=== PATIENT | male | born 1940 | race Caucasian/White ===

== ENCOUNTER → 2016-10-11 | Outpatient (CLI) | payer OTHER ==
[~2016-10-11] MED LIST: ALFUZOSIN HCL E10 MG PO; ASPIR 8181 MG PO; EFFEXOR XR150 MG PO; LISINOPRIL40 MG PO; LOPRESSOR 50 MG50 MG PO; MAG-OX 400 TAB400 MG PO; METFORMIN HCL1000 MG PO; METOPROLOL TAR100 MG PO; MULTIVITAMINS1 EAC1 PO; NORVASC 5 MG TAB5 MG PO; OMNICEF 300 MG300 MG PO; PLAVIX 75 MG TA75 MG PO; RANITIDINE HCL150 MG PO
== END ==
LOC: HEART 5 08-28 09:00
DX: R07.9 Chest pain, unspecified (principal)
CPT/HCPCS: 93306

== ENCOUNTER 2016-11-04 18:50 | Emergency (ER) | payer OTHER ==
[2016-11-04 20:04] LABS: HEMOGLOBIN 14.2 gm/dl (14.0-17.5); RED BLOOD COUNT 4.8 M/UL (4.20-5.50); WHITE BLOOD COUNT 9.3 K/UL (4.5-11.0)
[2016-11-04 20:26] LABS: BUN/CREATININE RATIO 25 (0-10)
== END 2016-11-04 22:15 | disposition home or self-care (01) ==
LOC: ER1 18:50
PROVIDERS: Family Medicine
DX: R05 Cough (principal); E11.9 Type 2 diabetes mellitus without complications; I10 Essential (primary) hypertension; Z79.84 Long term (current) use of oral hypoglycemic drugs; Z79.82 Long term (current) use of aspirin; Z79.899 Other long term (current) drug therapy
CPT/HCPCS: 36415; 71020; 80053; 82550; 82553; 83874; 83880; 84484; 85025; 85379; 87081; 87880; 93005; 94640; 94664; 96365; 96375; 99284; J0696; J2930; J7050

== ENCOUNTER → 2020-07-05 | Outpatient (CLI) | payer OTHER ==
[~2020-07-05] MED LIST changes: +ACIDOPHILUS1 EAC2 PO; +ALAVERT10 MG PO; +ALLER-TEC10 MG PO; +ARTIFICIAL TEAR15 M5 OP; +AUGMENTIN 875-1 EACH PO; +CEPHALEXIN500 MG PO; +CLEOCIN HCL75 MG PO; +COMBIVENT RESPIM4 GM INH; +DEPAKOTE125 MG PO; +DIFLUCAN 100 M100 MG PO; +FLOMAX0.4 MG PO; +FLONASE 0.05% N16 GM; +FLORANEX GRANU1 EACH PO; +FLOVENT DISKUS50 MCG INH; +GAVILAX17 GM PO; +GLIPIZIDE XL10 MG PO; +GLUCOTROL5 MG PO; +INVANZ 1 GM VIAL1 GM IV; +IPRAT-ALBUT 0.5-3 ML NEB; +LACTINEX TABLET1 EA PO; +LEVAQUIN750 MG PO; +LIPITOR TAB 2020 MG PO; +MAGNESIUM OXID420 MG PO; +MELATONIN3 MG PO; +NAMENDA10 MG PO; +NORCO 5-325 TA1 EACH PO; +PAIN RELIEF TOP; +PHARBETOL325 MG PO; +PROAIR DIGIHAL90 MCG INH; +PROBIOTIC & AC1 EACH PO; +PROTONIX 40 MG40 M1 PO; +PROVENTIL HFA 61 INH INH; +REFRESH TEARS15 ML OU; +THERA-M CAPLET1 EACH PO; +TRAZODONE HCL100 MG PO; +TRAZODONE HCL150 MG PO; +VENTOLIN HFA 66.7 GM INH; +VIBRAMYCIN100 MG PO; +VITAMIN B-121000 MC3 PO; +VITAMIN C 500500 MG PO; +VITAMIN D 40400 UNIT PO; +VITAMIN D325 MC6 PO; +ZANTAC 150 MG150 MG PO; +[UNRECOGNIZED DRUG - OTHER] TOP
== END ==
LOC: WCC 14:57
PROC: 0JBR0ZZ Excision of Left Foot Subcutaneous Tissue and Fascia, Open Approach (ICD-10-PCS; principal; 2020-07-05)
DX: E08.621 Diabetes mellitus due to underlying condition with foot ulcer (principal); L97.525 Non-pressure chronic ulcer of other part of left foot with muscle involvement without evidence of necrosis; E08.40 Diabetes mellitus due to underlying condition with diabetic neuropathy, unspecified; I73.9 Peripheral vascular disease, unspecified

== ENCOUNTER → 2020-07-12 | Outpatient (CLI) | payer OTHER | LOC: WCC 15:00 | PROC: 0JBR0ZZ Excision of Left Foot Subcutaneous Tissue and Fascia, Open Approach (ICD-10-PCS; principal; 2020-07-12) | DX: L97.523 Non-pressure chronic ulcer of other part of left foot with necrosis of muscle (principal); L97.525 Non-pressure chronic ulcer of other part of left foot with muscle involvement without evidence of necrosis; L97.522 Non-pressure chronic ulcer of other part of left foot with fat layer exposed; L97.528 Non-pressure chronic ulcer of other part of left foot with other specified severity; I73.9 Peripheral vascular disease, unspecified; E08.40 Diabetes mellitus due to underlying condition with diabetic neuropathy, unspecified | CPT/HCPCS: 87070; 87077; 87186; 87205 ==

== ENCOUNTER 2020-09-17 17:13 | Emergency (ER) | payer OTHER, MEDICAID ==
[~2020-09-17 17:13] MED LIST changes: -CEPHALEXIN500 MG PO; -COMBIVENT RESPIM4 GM INH; -DEPAKOTE125 MG PO; -DIFLUCAN 100 M100 MG PO; -FLORANEX GRANU1 EACH PO; -IPRAT-ALBUT 0.5-3 ML NEB; -VIBRAMYCIN100 MG PO; -VITAMIN D325 MC6 PO
[2020-09-17 22:06] LABS: HEMOGLOBIN 14.2 gm/dl (14.0-17.5); RED BLOOD COUNT 4.82 M/UL (4.20-5.50); WHITE BLOOD COUNT 7.9 K/UL (4.5-11.0)
[2020-09-17 22:15] LABS: BUN/CREATININE RATIO 18 (0-10)
[2020-09-17] MEDS ORDERED: CEPHALEXIN500 MG PO (23:52)
[2020-09-17] MEDS ORDERED: VIBRAMYCIN100 MG PO (23:52)
== END 2020-09-18 00:26 | disposition home or self-care (01) ==
LOC: ER1 17:13
PROVIDERS: Emergency Medicine
DX: E11.621 Type 2 diabetes mellitus with foot ulcer (principal); I10 Essential (primary) hypertension
CPT/HCPCS: 36415; 73630; 80053; 82550; 82553; 84484; 85025; 85652; 86140; 87040; 99283

== ENCOUNTER → 2020-09-29 | Outpatient (CLI) | payer OTHER, MEDICAID ==
[~2020-09-29] MED LIST changes: +CEPHALEXIN500 MG PO; +COMBIVENT RESPIM4 GM INH; +DEPAKOTE125 MG PO; +DIFLUCAN 100 M100 MG PO; +FLORANEX GRANU1 EACH PO; +IPRAT-ALBUT 0.5-3 ML NEB; +VIBRAMYCIN100 MG PO; +VITAMIN D325 MC6 PO
== END ==
LOC: WCC 12:59
PROC: 0KBW0ZZ Excision of Left Foot Muscle, Open Approach (ICD-10-PCS; principal; 2020-09-29)
DX: E11.621 Type 2 diabetes mellitus with foot ulcer (principal); L97.423 Non-pressure chronic ulcer of left heel and midfoot with necrosis of muscle; E11.52 Type 2 diabetes mellitus with diabetic peripheral angiopathy with gangrene; I96 Gangrene, not elsewhere classified; E11.69 Type 2 diabetes mellitus with other specified complication; M86.8X9 Other osteomyelitis, unspecified sites; E11.65 Type 2 diabetes mellitus with hyperglycemia; E11.610 Type 2 diabetes mellitus with diabetic neuropathic arthropathy; E11.36 Type 2 diabetes mellitus with diabetic cataract; H26.9 Unspecified cataract; I49.9 Cardiac arrhythmia, unspecified; I10 Essential (primary) hypertension; M19.90 Unspecified osteoarthritis, unspecified site; L84 Corns and callosities
CPT/HCPCS: 87070; 87077; 87186; 87205; 97597; G0463

== ENCOUNTER 2020-10-02 00:29 | Inpatient (IN) | payer MEDICARE ==
[~2020-10-02] VITALS: Ht 177.8 cm; Wt 81.3 kg
[~2020-10-02 00:29] MED LIST changes: -COMBIVENT RESPIM4 GM INH; -DEPAKOTE125 MG PO; -DIFLUCAN 100 M100 MG PO; -FLORANEX GRANU1 EACH PO; -IPRAT-ALBUT 0.5-3 ML NEB; -VITAMIN D325 MC6 PO
[2020-10-02 01:21] LABS: RED BLOOD COUNT 4.57 M/UL (4.20-5.50); WHITE BLOOD COUNT 5.2 K/UL (4.5-11.0)
[2020-10-02 01:41] LABS: BUN/CREATININE RATIO 24 (0-10)
[2020-10-02] MEDS ORDERED: DEPAKOTE125 MG PO (17:25)
[2020-10-02] MEDS ORDERED: VITAMIN D325 MC6 PO (17:25)
[2020-10-03 02:14] LABS: HEMOGLOBIN 13.3 gm/dl (14.0-17.5); RED BLOOD COUNT 4.74 M/UL (4.20-5.50); WHITE BLOOD COUNT 4.7 K/UL (4.5-11.0)
[2020-10-03 02:36] LABS: BUN/CREATININE RATIO 35 (0-10)
[2020-10-04 07:49] LABS: HEMOGLOBIN 14.6 gm/dl (14.0-17.5)
[2020-10-04 07:50] LABS: RED BLOOD COUNT 5.25 M/UL (4.20-5.50); WHITE BLOOD COUNT 7.8 K/UL (4.5-11.0)
[2020-10-04 08:16] LABS: BUN/CREATININE RATIO 31 (0-10)
--- NOTE | 2020-10-04 12:48 | NUR ---
0855 PATIENT PULSE OX LOW RECEIVED CALL FROM TELEMETRY. REQUEST ASSISTANCE FROM RT AND CHECKED PATIENT. DR. LOREDO ON THE FLOOR AND ORDERED BREATHING TREATMENT AND AIRVO FOR PATIENT. PATIENT WITH NO S/SX OF RESPIRATORY FAILURE DURING THIS EPISODE.
--- NOTE | 2020-10-04 12:50 | NUR ---
1243 RECEIVED CALL FROM TELEMETRY STATING PATIENT PULSE OX LOW BETWEEN 70'S TO 80'S. CHECKED PATIENT NO S/SX OF RESPIRATORY DEFFICIENCY NOTED, DENIES ANY SOB. CHECKED ALL CONNECTIONS AND CONTACTED RT FOR ASSISTANCE. RT IN THE ROOM AT THIS TIME. WILL CONTINUE TO EVALUATE PATIENT
--- NOTE | 2020-10-04 14:31 | NUR ---
DR. ARREDONDO SEEN LEFT FOOT WOUND AND NO ANTIBIOTICS NEEDED. WILL APPLY DRY DRESSING.
--- NOTE | 2020-10-04 17:20 | NUR ---
INFORMED PHARMACIST LEXI AND PIPE LINE INSPECTOR CARLOS ALBERTO DR. ARREDONDO STATED NO ANTIBIOTICS FOR WOUND AT THIS TIME
[2020-10-05 04:54] LABS: RED BLOOD COUNT 4.96 M/UL (4.20-5.50); WHITE BLOOD COUNT 8.9 K/UL (4.5-11.0)
[2020-10-05 05:00] LABS: BUN/CREATININE RATIO 34 (0-10)
[2020-10-06 04:40] LABS: HEMOGLOBIN 12.9 gm/dl (14.0-17.5); RED BLOOD COUNT 4.59 M/UL (4.20-5.50); WHITE BLOOD COUNT 7.2 K/UL (4.5-11.0)
[2020-10-06 05:00] LABS: BUN/CREATININE RATIO 36 (0-10)
[2020-10-07 06:51] LABS: HEMOGLOBIN 13.9 gm/dl (14.0-17.5); RED BLOOD COUNT 4.88 M/UL (4.20-5.50)
[2020-10-07 06:53] LABS: WHITE BLOOD COUNT 9.9 K/UL (4.5-11.0)
[2020-10-07 07:20] LABS: BUN/CREATININE RATIO 38 (0-10)
[2020-10-08 05:18] LABS: BUN/CREATININE RATIO 36 (0-10)
[2020-10-09 04:28] LABS: BUN/CREATININE RATIO 35 (0-10)
[2020-10-10 06:40] LABS: BUN/CREATININE RATIO 45 (0-10)
[2020-10-11 06:37] LABS: BUN/CREATININE RATIO 31 (0-10)
[2020-10-14] MEDS ORDERED: IPRAT-ALBUT 0.5-3 ML NEB (11:49)
--- NOTE | 2020-10-14 13:34 | NUR ---
10/14/20 1300 ROOM AIR SAT 75% OXYGEN REAPPLIED
== END 2020-10-15 17:03 | disposition home health service (06) | DRG 177 ==
LOC: ER1 00:29 → CDU 02:40 → MED SURG 4 02:40 → M/S 16:00 → MED SURG 4 19:46
PROVIDERS: Internal Medicine; Physician Assistant; ADMIT Internal Medicine
PROC: 8E0ZXY6 Isolation (ICD-10-PCS; principal; 2020-10-02)
PROC: XW033E5 Introduction of Remdesivir Anti-infective into Peripheral Vein, Percutaneous Approach, New Technology Group 5 (ICD-10-PCS; 2020-10-02)
PROC: 3E0333Z Introduction of Anti-inflammatory into Peripheral Vein, Percutaneous Approach (ICD-10-PCS; 2020-10-02)
PROC: XW13325 Transfusion of Convalescent Plasma (Nonautologous) into Peripheral Vein, Percutaneous Approach, New Technology Group 5 (ICD-10-PCS; 2020-10-03)
PROC: 5A0955A Assistance with Respiratory Ventilation, Greater than 96 Consecutive Hours, High Flow/Velocity Cannula (ICD-10-PCS; 2020-10-04)
DX: U07.1 COVID-19 (principal); J12.82 Pneumonia due to coronavirus disease 2019; J80 Acute respiratory distress syndrome; E87.2 Acidosis; E11.621 Type 2 diabetes mellitus with foot ulcer; L97.529 Non-pressure chronic ulcer of other part of left foot with unspecified severity; B95.62 Methicillin resistant Staphylococcus aureus infection as the cause of diseases classified elsewhere; E11.51 Type 2 diabetes mellitus with diabetic peripheral angiopathy without gangrene; I10 Essential (primary) hypertension; F03.90 Unspecified dementia, unspecified severity, without behavioral disturbance, psychotic disturbance, mood disturbance, and anxiety; E78.5 Hyperlipidemia, unspecified; Z86.73 Personal history of transient ischemic attack (TIA), and cerebral infarction without residual deficits; Z89.422 Acquired absence of other left toe(s); Z98.890 Other specified postprocedural states; E11.649 Type 2 diabetes mellitus with hypoglycemia without coma; K21.9 Gastro-esophageal reflux disease without esophagitis; M72.2 Plantar fascial fibromatosis
CPT/HCPCS: 0240U; 36415; 36600; 51702; 70450; 71045; 80048; 80053; 80202; 81001; 82550; 82553; 82803; 82962; 83605; 83874; 84484; 85025; 86900; 86901; 86927; 87040; 87086; 93005; 94640; 94664; 94760; 96365; 96366; 96372; 96375; 96376; 97162; 99285; J0692; J1100; J1650; J3370; J3486; J7030; J7070; Q9967

== ENCOUNTER 2020-10-16 09:51 | Inpatient (IN) | payer MEDICARE, MEDICAID ==
[~2020-10-16] VITALS: Ht 177.8 cm; Wt 86.2 kg
[~2020-10-16 09:51] MED LIST changes: +DEPAKOTE125 MG PO; +IPRAT-ALBUT 0.5-3 ML NEB; +VITAMIN D325 MC6 PO
[2020-10-16 12:33] LABS: HEMOGLOBIN 15.5 gm/dl (14.0-17.5); RED BLOOD COUNT 5.6 M/UL (4.20-5.50); WHITE BLOOD COUNT 15.8 K/UL (4.5-11.0)
[2020-10-16 13:03] LABS: BUN/CREATININE RATIO 48 (0-10)
[2020-10-17 05:34] LABS: HEMOGLOBIN 15.9 gm/dl (14.0-17.5); RED BLOOD COUNT 5.63 M/UL (4.20-5.50); WHITE BLOOD COUNT 16.1 K/UL (4.5-11.0)
[2020-10-17 05:55] LABS: BUN/CREATININE RATIO 47 (0-10)
[2020-10-18 03:23] LABS: HEMOGLOBIN 14.3 gm/dl (14.0-17.5)
[2020-10-18 03:34] LABS: RED BLOOD COUNT 4.93 M/UL (4.20-5.50); WHITE BLOOD COUNT 8.6 K/UL (4.5-11.0)
[2020-10-18 03:41] LABS: BUN/CREATININE RATIO 37 (0-10)
--- NOTE | 2020-10-19 16:00 | NUR ---
DR. MELARA AND STEPHANIE SAMPSON IN TO SPEAK TO PT AND ABOUT WIFES VOICED CONCERNS
[2020-10-19 18:11] LABS: BUN/CREATININE RATIO 30 (0-10)
[2020-10-20 06:49] LABS: BUN/CREATININE RATIO 31 (0-10)
[2020-10-20] MEDS ORDERED: FLORANEX GRANU1 EACH PO (09:32)
[2020-10-20] MEDS ORDERED: DIFLUCAN 100 M100 MG PO ×2 (09:32→09:34)
[2020-10-20] MEDS ORDERED: COMBIVENT RESPIM4 GM INH (09:32)
--- NOTE | 2020-10-20 15:29 | NUR ---
PATIENTS PRESENTS TO [facility], STATING " WHY IS HE NOT READY TO GO TO THE LONG TERM" RN EXPLAINED THAT [employer] E[employer]IPMENT REPAIRER HAD THE CHART AT PRESENT. PATIENTS BECAME VERY ACCUSATORY OF RN AND CARE PATIENT HAD RECEIVED. RN EXPLAINED THAT MEDICATION HAD NOT BEEN APPLIED TO MOUTH SPEECH THERAPY CAME IN FOR EVALUATION, RN EXPLAINED THAT THE MEDICATION WAS ORDERED DAILY AND IT WOULD BE DOEN BEFORE PATIENT DISCHARGED TO LONG TERM. INFORMED RN THAT SHE WAS NOT DRIVING PATIENT TO LONG TERM THAT AN AMBULANCE WAS NEEDED SHE ONLY BROUGHT HIS OXYGEN BECAUSE HE WOULD NEED IT. RN NOTIFIED [facility] FOR TRANSPORT AND FAXED APPROPREIATE FORM, [facility] GIVES ETA OF 30 MINUTES TO 1 HOUR. RN INFORMED OF ETA, SHE RELPIED, "WHY DO YOU KEEP LYING TO ME". INSISTS THAT SHE SPEAK WITH THE [employer]ERE[employer] EQUIPMENT REPAIRER. RN NOTIFIED CM. LESLY
== END 2020-10-20 14:42 | DRG 555 ==
LOC: ER1 09:51 → CDU 16:26 → MED SURG 4 16:26
PROVIDERS: Internal Medicine; Physician Assistant; ADMIT Internal Medicine
DX: R26.2 Difficulty in walking, not elsewhere classified (principal); J96.21 Acute and chronic respiratory failure with hypoxia; U07.1 COVID-19; E87.1 Hypo-osmolality and hyponatremia; Z86.16 Personal history of COVID-19; E11.9 Type 2 diabetes mellitus without complications; I10 Essential (primary) hypertension; F03.90 Unspecified dementia, unspecified severity, without behavioral disturbance, psychotic disturbance, mood disturbance, and anxiety; B37.9 Candidiasis, unspecified; E78.5 Hyperlipidemia, unspecified; Z79.899 Other long term (current) drug therapy; Z79.82 Long term (current) use of aspirin; Z79.84 Long term (current) use of oral hypoglycemic drugs; Z79.01 Long term (current) use of anticoagulants; E11.621 Type 2 diabetes mellitus with foot ulcer; A49.02 Methicillin resistant Staphylococcus aureus infection, unspecified site; Z86.73 Personal history of transient ischemic attack (TIA), and cerebral infarction without residual deficits
CPT/HCPCS: 36415; 51702; 70450; 71045; 80048; 80053; 81001; 82550; 82553; 82962; 83605; 83735; 83874; 84484; 85025; 86850; 86900; 86901; 87040; 92610; 93005; 94640; 94760; 96372; 96374; 96375; 97110-GP-CQ; 97116-GP-CQ; 97162; 99285; G0378; J0692; J1650; J7030; U0002

== ENCOUNTER → 2020-12-27 | Outpatient (CLI) | payer OTHER, MEDICAID ==
[~2020-12-27] MED LIST changes: +COMBIVENT RESPIM4 GM INH; +DIFLUCAN 100 M100 MG PO; +FLORANEX GRANU1 EACH PO
== END ==
LOC: WCC 13:22
DX: E11.621 Type 2 diabetes mellitus with foot ulcer (principal); L97.425 Non-pressure chronic ulcer of left heel and midfoot with muscle involvement without evidence of necrosis; E11.65 Type 2 diabetes mellitus with hyperglycemia; E11.610 Type 2 diabetes mellitus with diabetic neuropathic arthropathy; I10 Essential (primary) hypertension; E11.51 Type 2 diabetes mellitus with diabetic peripheral angiopathy without gangrene; L84 Corns and callosities; F02.80 Dementia in other diseases classified elsewhere, unspecified severity, without behavioral disturbance, psychotic disturbance, mood disturbance, and anxiety; Z86.16 Personal history of COVID-19
CPT/HCPCS: 87070; 87077; 87186; 87205

== ENCOUNTER → 2021-01-04 | Outpatient (CLI) | payer OTHER, MEDICAID | LOC: WCC 13:15 | DX: E11.621 Type 2 diabetes mellitus with foot ulcer (principal); L97.425 Non-pressure chronic ulcer of left heel and midfoot with muscle involvement without evidence of necrosis; E11.65 Type 2 diabetes mellitus with hyperglycemia; E11.610 Type 2 diabetes mellitus with diabetic neuropathic arthropathy; E11.51 Type 2 diabetes mellitus with diabetic peripheral angiopathy without gangrene; I10 Essential (primary) hypertension; L84 Corns and callosities; F02.80 Dementia in other diseases classified elsewhere, unspecified severity, without behavioral disturbance, psychotic disturbance, mood disturbance, and anxiety; Z79.2 Long term (current) use of antibiotics ==

== ENCOUNTER → 2021-01-11 | Outpatient (CLI) | payer MEDICARE | LOC: WCC 15:00 | DX: E11.621 Type 2 diabetes mellitus with foot ulcer (principal); L97.422 Non-pressure chronic ulcer of left heel and midfoot with fat layer exposed; E11.65 Type 2 diabetes mellitus with hyperglycemia; E11.610 Type 2 diabetes mellitus with diabetic neuropathic arthropathy; E11.51 Type 2 diabetes mellitus with diabetic peripheral angiopathy without gangrene; I10 Essential (primary) hypertension; L84 Corns and callosities; F02.80 Dementia in other diseases classified elsewhere, unspecified severity, without behavioral disturbance, psychotic disturbance, mood disturbance, and anxiety; Z86.16 Personal history of COVID-19; Z79.2 Long term (current) use of antibiotics ==

== ENCOUNTER → 2021-01-18 | Outpatient (CLI) | payer OTHER | LOC: WCC 14:30 | DX: E11.621 Type 2 diabetes mellitus with foot ulcer (principal); L97.525 Non-pressure chronic ulcer of other part of left foot with muscle involvement without evidence of necrosis; E11.610 Type 2 diabetes mellitus with diabetic neuropathic arthropathy; E11.51 Type 2 diabetes mellitus with diabetic peripheral angiopathy without gangrene; E11.65 Type 2 diabetes mellitus with hyperglycemia; I10 Essential (primary) hypertension; L84 Corns and callosities; F03.90 Unspecified dementia, unspecified severity, without behavioral disturbance, psychotic disturbance, mood disturbance, and anxiety; Z86.16 Personal history of COVID-19 ==

== ENCOUNTER → 2021-01-19 | Outpatient (CLI) | payer OTHER ==
[2021-01-19 12:54] LABS: HEMOGLOBIN 14.1 gm/dl (14.0-17.5); RED BLOOD COUNT 4.99 M/UL (4.20-5.50); WHITE BLOOD COUNT 6.3 K/UL (4.5-11.0)
[2021-01-19 13:22] LABS: BUN/CREATININE RATIO 22 (0-10)
[2021-01-20 05:09] LABS: CREATININE, URINE 46.5 mg/dL (Not Estab.)
== END ==
LOC: LAB 11:41
PROVIDERS: Physician Assistant
DX: E11.65 Type 2 diabetes mellitus with hyperglycemia (principal); E78.2 Mixed hyperlipidemia; I10 Essential (primary) hypertension; J44.9 Chronic obstructive pulmonary disease, unspecified; N40.1 Benign prostatic hyperplasia with lower urinary tract symptoms
CPT/HCPCS: 36415; 80053; 80061; 82043; 82570; 82607; 82746; 83036; 84443; 85025

== ENCOUNTER → 2021-01-25 | Outpatient (CLI) | payer OTHER | LOC: WCC 14:45 | DX: E11.621 Type 2 diabetes mellitus with foot ulcer (principal); L97.525 Non-pressure chronic ulcer of other part of left foot with muscle involvement without evidence of necrosis; E11.65 Type 2 diabetes mellitus with hyperglycemia; E11.610 Type 2 diabetes mellitus with diabetic neuropathic arthropathy; E11.40 Type 2 diabetes mellitus with diabetic neuropathy, unspecified; E11.51 Type 2 diabetes mellitus with diabetic peripheral angiopathy without gangrene; I10 Essential (primary) hypertension; L84 Corns and callosities; F03.90 Unspecified dementia, unspecified severity, without behavioral disturbance, psychotic disturbance, mood disturbance, and anxiety; Z86.16 Personal history of COVID-19 ==

== ENCOUNTER → 2021-02-01 | Outpatient (CLI) | payer MEDICARE, OTHER | LOC: WCC 14:30 | DX: E11.621 Type 2 diabetes mellitus with foot ulcer (principal); L97.425 Non-pressure chronic ulcer of left heel and midfoot with muscle involvement without evidence of necrosis; E11.65 Type 2 diabetes mellitus with hyperglycemia; E11.610 Type 2 diabetes mellitus with diabetic neuropathic arthropathy; E11.51 Type 2 diabetes mellitus with diabetic peripheral angiopathy without gangrene; I10 Essential (primary) hypertension; L84 Corns and callosities; F03.90 Unspecified dementia, unspecified severity, without behavioral disturbance, psychotic disturbance, mood disturbance, and anxiety ==

== ENCOUNTER → 2021-02-16 | Outpatient (CLI) | payer MEDICARE, OTHER | LOC: WCC 14:00 | DX: E11.621 Type 2 diabetes mellitus with foot ulcer (principal); L97.525 Non-pressure chronic ulcer of other part of left foot with muscle involvement without evidence of necrosis; E11.65 Type 2 diabetes mellitus with hyperglycemia; E11.610 Type 2 diabetes mellitus with diabetic neuropathic arthropathy; I10 Essential (primary) hypertension; E11.51 Type 2 diabetes mellitus with diabetic peripheral angiopathy without gangrene; L84 Corns and callosities; F02.80 Dementia in other diseases classified elsewhere, unspecified severity, without behavioral disturbance, psychotic disturbance, mood disturbance, and anxiety ==

== ENCOUNTER → 2021-03-02 | Outpatient (CLI) | payer MEDICARE, OTHER | LOC: WCC 10:54 | PROC: 0JBR0ZZ Excision of Left Foot Subcutaneous Tissue and Fascia, Open Approach (ICD-10-PCS; principal; 2021-03-02) | DX: E11.621 Type 2 diabetes mellitus with foot ulcer (principal); L97.425 Non-pressure chronic ulcer of left heel and midfoot with muscle involvement without evidence of necrosis; E11.65 Type 2 diabetes mellitus with hyperglycemia; E11.610 Type 2 diabetes mellitus with diabetic neuropathic arthropathy; I10 Essential (primary) hypertension; L84 Corns and callosities; F02.80 Dementia in other diseases classified elsewhere, unspecified severity, without behavioral disturbance, psychotic disturbance, mood disturbance, and anxiety; E11.51 Type 2 diabetes mellitus with diabetic peripheral angiopathy without gangrene; E11.36 Type 2 diabetes mellitus with diabetic cataract; H26.9 Unspecified cataract; M19.90 Unspecified osteoarthritis, unspecified site; E11.69 Type 2 diabetes mellitus with other specified complication; M86.8X9 Other osteomyelitis, unspecified sites; Z79.84 Long term (current) use of oral hypoglycemic drugs; Z79.82 Long term (current) use of aspirin; Z79.02 Long term (current) use of antithrombotics/antiplatelets; Z79.899 Other long term (current) drug therapy ==

== ENCOUNTER → 2021-03-09 | Outpatient (CLI) | payer MEDICARE, OTHER | LOC: WCC 13:58 | DX: E11.621 Type 2 diabetes mellitus with foot ulcer (principal); L97.425 Non-pressure chronic ulcer of left heel and midfoot with muscle involvement without evidence of necrosis; E11.65 Type 2 diabetes mellitus with hyperglycemia; E11.610 Type 2 diabetes mellitus with diabetic neuropathic arthropathy; I10 Essential (primary) hypertension; E11.51 Type 2 diabetes mellitus with diabetic peripheral angiopathy without gangrene; L84 Corns and callosities; F02.80 Dementia in other diseases classified elsewhere, unspecified severity, without behavioral disturbance, psychotic disturbance, mood disturbance, and anxiety; L03.113 Cellulitis of right upper limb; Z79.84 Long term (current) use of oral hypoglycemic drugs; Z79.82 Long term (current) use of aspirin; Z79.2 Long term (current) use of antibiotics; Z79.899 Other long term (current) drug therapy ==

== ENCOUNTER → 2021-03-30 | Outpatient (CLI) | payer MEDICARE | LOC: WCC 10:24 | DX: E11.621 Type 2 diabetes mellitus with foot ulcer (principal); L97.425 Non-pressure chronic ulcer of left heel and midfoot with muscle involvement without evidence of necrosis; E11.65 Type 2 diabetes mellitus with hyperglycemia; E11.610 Type 2 diabetes mellitus with diabetic neuropathic arthropathy; E11.51 Type 2 diabetes mellitus with diabetic peripheral angiopathy without gangrene; I10 Essential (primary) hypertension; L84 Corns and callosities; F02.80 Dementia in other diseases classified elsewhere, unspecified severity, without behavioral disturbance, psychotic disturbance, mood disturbance, and anxiety; Z79.82 Long term (current) use of aspirin; Z79.02 Long term (current) use of antithrombotics/antiplatelets; Z79.84 Long term (current) use of oral hypoglycemic drugs; Z79.2 Long term (current) use of antibiotics; Z79.899 Other long term (current) drug therapy ==

== ENCOUNTER → 2021-04-19 | Outpatient (CLI) | payer MEDICARE | LOC: WCC 13:00 | DX: E11.621 Type 2 diabetes mellitus with foot ulcer (principal); L97.425 Non-pressure chronic ulcer of left heel and midfoot with muscle involvement without evidence of necrosis; E11.65 Type 2 diabetes mellitus with hyperglycemia; E11.610 Type 2 diabetes mellitus with diabetic neuropathic arthropathy; E11.51 Type 2 diabetes mellitus with diabetic peripheral angiopathy without gangrene; I10 Essential (primary) hypertension; L84 Corns and callosities; F02.80 Dementia in other diseases classified elsewhere, unspecified severity, without behavioral disturbance, psychotic disturbance, mood disturbance, and anxiety; L03.113 Cellulitis of right upper limb; Z79.82 Long term (current) use of aspirin; Z79.84 Long term (current) use of oral hypoglycemic drugs; Z79.02 Long term (current) use of antithrombotics/antiplatelets; Z79.899 Other long term (current) drug therapy ==

== ENCOUNTER → 2021-04-26 | Outpatient (CLI) | payer MEDICARE | LOC: WCC 12:40 | DX: E11.621 Type 2 diabetes mellitus with foot ulcer (principal); L97.525 Non-pressure chronic ulcer of other part of left foot with muscle involvement without evidence of necrosis; Z79.82 Long term (current) use of aspirin; Z79.01 Long term (current) use of anticoagulants; Z79.84 Long term (current) use of oral hypoglycemic drugs; E11.610 Type 2 diabetes mellitus with diabetic neuropathic arthropathy; E11.65 Type 2 diabetes mellitus with hyperglycemia; I10 Essential (primary) hypertension; E11.51 Type 2 diabetes mellitus with diabetic peripheral angiopathy without gangrene; F02.80 Dementia in other diseases classified elsewhere, unspecified severity, without behavioral disturbance, psychotic disturbance, mood disturbance, and anxiety; L03.113 Cellulitis of right upper limb; L84 Corns and callosities ==

== ENCOUNTER → 2021-05-04 | Outpatient (CLI) | payer MEDICARE | LOC: WCC 13:09 | DX: E11.621 Type 2 diabetes mellitus with foot ulcer (principal); L97.525 Non-pressure chronic ulcer of other part of left foot with muscle involvement without evidence of necrosis; Z79.84 Long term (current) use of oral hypoglycemic drugs; Z79.82 Long term (current) use of aspirin; Z79.01 Long term (current) use of anticoagulants; E11.65 Type 2 diabetes mellitus with hyperglycemia; E11.610 Type 2 diabetes mellitus with diabetic neuropathic arthropathy; I10 Essential (primary) hypertension; E11.51 Type 2 diabetes mellitus with diabetic peripheral angiopathy without gangrene; L84 Corns and callosities; F02.80 Dementia in other diseases classified elsewhere, unspecified severity, without behavioral disturbance, psychotic disturbance, mood disturbance, and anxiety; L03.113 Cellulitis of right upper limb ==

== ENCOUNTER → 2021-05-10 | Outpatient (CLI) | payer MEDICARE | LOC: WCC 12:17 | DX: E11.621 Type 2 diabetes mellitus with foot ulcer (principal); L97.425 Non-pressure chronic ulcer of left heel and midfoot with muscle involvement without evidence of necrosis; E11.65 Type 2 diabetes mellitus with hyperglycemia; E11.610 Type 2 diabetes mellitus with diabetic neuropathic arthropathy; E11.51 Type 2 diabetes mellitus with diabetic peripheral angiopathy without gangrene; I10 Essential (primary) hypertension; L84 Corns and callosities; F02.80 Dementia in other diseases classified elsewhere, unspecified severity, without behavioral disturbance, psychotic disturbance, mood disturbance, and anxiety; L03.113 Cellulitis of right upper limb; Z79.84 Long term (current) use of oral hypoglycemic drugs; Z79.82 Long term (current) use of aspirin; Z79.02 Long term (current) use of antithrombotics/antiplatelets; Z79.899 Other long term (current) drug therapy ==

== ENCOUNTER → 2021-06-06 | Outpatient (CLI) | payer MEDICARE | LOC: WCC 13:16 | DX: E11.621 Type 2 diabetes mellitus with foot ulcer (principal); L97.825 Non-pressure chronic ulcer of other part of left lower leg with muscle involvement without evidence of necrosis; Z79.84 Long term (current) use of oral hypoglycemic drugs; Z79.82 Long term (current) use of aspirin; Z79.01 Long term (current) use of anticoagulants; E11.65 Type 2 diabetes mellitus with hyperglycemia; E11.610 Type 2 diabetes mellitus with diabetic neuropathic arthropathy; I10 Essential (primary) hypertension; E11.51 Type 2 diabetes mellitus with diabetic peripheral angiopathy without gangrene; L84 Corns and callosities; F02.80 Dementia in other diseases classified elsewhere, unspecified severity, without behavioral disturbance, psychotic disturbance, mood disturbance, and anxiety ==

== ENCOUNTER → 2021-06-13 | Outpatient (CLI) | payer MEDICARE | LOC: WCC 11:49 | DX: E11.621 Type 2 diabetes mellitus with foot ulcer (principal); L97.525 Non-pressure chronic ulcer of other part of left foot with muscle involvement without evidence of necrosis; Z79.84 Long term (current) use of oral hypoglycemic drugs; E11.65 Type 2 diabetes mellitus with hyperglycemia; E11.610 Type 2 diabetes mellitus with diabetic neuropathic arthropathy; I10 Essential (primary) hypertension; E11.51 Type 2 diabetes mellitus with diabetic peripheral angiopathy without gangrene; L84 Corns and callosities; F02.80 Dementia in other diseases classified elsewhere, unspecified severity, without behavioral disturbance, psychotic disturbance, mood disturbance, and anxiety ==

== ENCOUNTER → 2021-07-14 | Outpatient (CLI) | payer MEDICARE | LOC: WCC 07:56 | DX: E11.621 Type 2 diabetes mellitus with foot ulcer (principal); L97.425 Non-pressure chronic ulcer of left heel and midfoot with muscle involvement without evidence of necrosis; E11.65 Type 2 diabetes mellitus with hyperglycemia; E11.610 Type 2 diabetes mellitus with diabetic neuropathic arthropathy; I10 Essential (primary) hypertension; E11.51 Type 2 diabetes mellitus with diabetic peripheral angiopathy without gangrene; L84 Corns and callosities; F02.80 Dementia in other diseases classified elsewhere, unspecified severity, without behavioral disturbance, psychotic disturbance, mood disturbance, and anxiety; Z79.82 Long term (current) use of aspirin; Z79.02 Long term (current) use of antithrombotics/antiplatelets; Z79.84 Long term (current) use of oral hypoglycemic drugs; Z79.899 Other long term (current) drug therapy ==

== ENCOUNTER → 2021-07-21 | Outpatient (CLI) | payer MEDICARE | END | disposition home or self-care (01) | LOC: WCC 07:57 | PROC: 0JBR0ZZ Excision of Left Foot Subcutaneous Tissue and Fascia, Open Approach (ICD-10-PCS; principal; 2021-07-21) | DX: E11.621 Type 2 diabetes mellitus with foot ulcer (principal); L97.425 Non-pressure chronic ulcer of left heel and midfoot with muscle involvement without evidence of necrosis; E11.65 Type 2 diabetes mellitus with hyperglycemia; E11.610 Type 2 diabetes mellitus with diabetic neuropathic arthropathy; E11.51 Type 2 diabetes mellitus with diabetic peripheral angiopathy without gangrene; I10 Essential (primary) hypertension; L84 Corns and callosities; F02.80 Dementia in other diseases classified elsewhere, unspecified severity, without behavioral disturbance, psychotic disturbance, mood disturbance, and anxiety; E11.36 Type 2 diabetes mellitus with diabetic cataract; H26.9 Unspecified cataract; E11.69 Type 2 diabetes mellitus with other specified complication; M86.8X9 Other osteomyelitis, unspecified sites; Z86.16 Personal history of COVID-19; Z79.84 Long term (current) use of oral hypoglycemic drugs; Z79.82 Long term (current) use of aspirin; Z79.02 Long term (current) use of antithrombotics/antiplatelets; Z79.2 Long term (current) use of antibiotics; Z79.899 Other long term (current) drug therapy ==

== ENCOUNTER → 2021-08-01 | Outpatient (CLI) | payer MEDICARE | LOC: WCC 08:08 | DX: E11.621 Type 2 diabetes mellitus with foot ulcer (principal); L97.425 Non-pressure chronic ulcer of left heel and midfoot with muscle involvement without evidence of necrosis; E11.65 Type 2 diabetes mellitus with hyperglycemia; E11.610 Type 2 diabetes mellitus with diabetic neuropathic arthropathy; I10 Essential (primary) hypertension; I73.9 Peripheral vascular disease, unspecified; L84 Corns and callosities; F02.80 Dementia in other diseases classified elsewhere, unspecified severity, without behavioral disturbance, psychotic disturbance, mood disturbance, and anxiety; R60.0 Localized edema; E11.36 Type 2 diabetes mellitus with diabetic cataract; H26.9 Unspecified cataract; Z79.02 Long term (current) use of antithrombotics/antiplatelets; Z79.82 Long term (current) use of aspirin ==

== ENCOUNTER → 2021-09-19 | Outpatient (CLI) | payer MEDICARE | LOC: WCC 07:54 | DX: E11.621 Type 2 diabetes mellitus with foot ulcer (principal); L97.425 Non-pressure chronic ulcer of left heel and midfoot with muscle involvement without evidence of necrosis; E11.65 Type 2 diabetes mellitus with hyperglycemia; E11.610 Type 2 diabetes mellitus with diabetic neuropathic arthropathy; I10 Essential (primary) hypertension; E11.51 Type 2 diabetes mellitus with diabetic peripheral angiopathy without gangrene; L84 Corns and callosities; F02.80 Dementia in other diseases classified elsewhere, unspecified severity, without behavioral disturbance, psychotic disturbance, mood disturbance, and anxiety; R60.0 Localized edema; Z79.84 Long term (current) use of oral hypoglycemic drugs; Z79.899 Other long term (current) drug therapy ==

== ENCOUNTER → 2021-09-26 | Outpatient (CLI) | payer MEDICARE | LOC: WCC 07:46 | DX: E11.621 Type 2 diabetes mellitus with foot ulcer (principal); L97.425 Non-pressure chronic ulcer of left heel and midfoot with muscle involvement without evidence of necrosis; E11.65 Type 2 diabetes mellitus with hyperglycemia; E11.610 Type 2 diabetes mellitus with diabetic neuropathic arthropathy; I10 Essential (primary) hypertension; I73.9 Peripheral vascular disease, unspecified; L84 Corns and callosities; F02.80 Dementia in other diseases classified elsewhere, unspecified severity, without behavioral disturbance, psychotic disturbance, mood disturbance, and anxiety; R60.0 Localized edema; E11.36 Type 2 diabetes mellitus with diabetic cataract; H26.9 Unspecified cataract; Z86.16 Personal history of COVID-19; Z79.82 Long term (current) use of aspirin ==

== ENCOUNTER → 2021-10-04 | Outpatient (CLI) | payer MEDICARE | LOC: WCC 09:25 | DX: E11.621 Type 2 diabetes mellitus with foot ulcer (principal); L97.425 Non-pressure chronic ulcer of left heel and midfoot with muscle involvement without evidence of necrosis; E11.65 Type 2 diabetes mellitus with hyperglycemia; E11.610 Type 2 diabetes mellitus with diabetic neuropathic arthropathy; E11.51 Type 2 diabetes mellitus with diabetic peripheral angiopathy without gangrene; I10 Essential (primary) hypertension; L84 Corns and callosities; F02.80 Dementia in other diseases classified elsewhere, unspecified severity, without behavioral disturbance, psychotic disturbance, mood disturbance, and anxiety; R60.0 Localized edema; Z79.82 Long term (current) use of aspirin; Z79.84 Long term (current) use of oral hypoglycemic drugs; Z79.899 Other long term (current) drug therapy ==

== ENCOUNTER → 2021-10-10 | Outpatient (CLI) | payer MEDICARE | END | disposition home or self-care (01) | LOC: WCC 07:58 | DX: E11.621 Type 2 diabetes mellitus with foot ulcer (principal); L97.425 Non-pressure chronic ulcer of left heel and midfoot with muscle involvement without evidence of necrosis; E11.65 Type 2 diabetes mellitus with hyperglycemia; E11.610 Type 2 diabetes mellitus with diabetic neuropathic arthropathy; I10 Essential (primary) hypertension; I73.9 Peripheral vascular disease, unspecified; R60.0 Localized edema; F02.80 Dementia in other diseases classified elsewhere, unspecified severity, without behavioral disturbance, psychotic disturbance, mood disturbance, and anxiety; Z79.2 Long term (current) use of antibiotics; Z79.02 Long term (current) use of antithrombotics/antiplatelets; Z79.82 Long term (current) use of aspirin; Z79.84 Long term (current) use of oral hypoglycemic drugs; Z79.899 Other long term (current) drug therapy ==

== ENCOUNTER → 2021-10-17 | Outpatient (CLI) | payer MEDICARE | LOC: WCC 08:35 | DX: E11.621 Type 2 diabetes mellitus with foot ulcer (principal); L97.425 Non-pressure chronic ulcer of left heel and midfoot with muscle involvement without evidence of necrosis; E11.65 Type 2 diabetes mellitus with hyperglycemia; E11.610 Type 2 diabetes mellitus with diabetic neuropathic arthropathy; I10 Essential (primary) hypertension; E11.51 Type 2 diabetes mellitus with diabetic peripheral angiopathy without gangrene; L84 Corns and callosities; F02.80 Dementia in other diseases classified elsewhere, unspecified severity, without behavioral disturbance, psychotic disturbance, mood disturbance, and anxiety; R60.0 Localized edema; Z79.82 Long term (current) use of aspirin; Z79.84 Long term (current) use of oral hypoglycemic drugs; Z79.01 Long term (current) use of anticoagulants; Z79.899 Other long term (current) drug therapy ==

== ENCOUNTER → 2021-10-24 | Outpatient (CLI) | payer MEDICARE | END | disposition home or self-care (01) | LOC: WCC 08:03 | DX: E11.621 Type 2 diabetes mellitus with foot ulcer (principal); L97.425 Non-pressure chronic ulcer of left heel and midfoot with muscle involvement without evidence of necrosis; E11.65 Type 2 diabetes mellitus with hyperglycemia; E11.610 Type 2 diabetes mellitus with diabetic neuropathic arthropathy; I10 Essential (primary) hypertension; E11.51 Type 2 diabetes mellitus with diabetic peripheral angiopathy without gangrene; L84 Corns and callosities; F02.80 Dementia in other diseases classified elsewhere, unspecified severity, without behavioral disturbance, psychotic disturbance, mood disturbance, and anxiety; R60.0 Localized edema; Z79.82 Long term (current) use of aspirin; Z79.84 Long term (current) use of oral hypoglycemic drugs; Z79.899 Other long term (current) drug therapy ==

== ENCOUNTER → 2021-10-31 | Outpatient (CLI) | payer MEDICARE | LOC: WCC 09:40 | DX: E11.621 Type 2 diabetes mellitus with foot ulcer (principal); L97.425 Non-pressure chronic ulcer of left heel and midfoot with muscle involvement without evidence of necrosis; E11.65 Type 2 diabetes mellitus with hyperglycemia; E11.610 Type 2 diabetes mellitus with diabetic neuropathic arthropathy; I10 Essential (primary) hypertension; E11.51 Type 2 diabetes mellitus with diabetic peripheral angiopathy without gangrene; L84 Corns and callosities; F02.80 Dementia in other diseases classified elsewhere, unspecified severity, without behavioral disturbance, psychotic disturbance, mood disturbance, and anxiety; R60.0 Localized edema; Z79.84 Long term (current) use of oral hypoglycemic drugs; Z79.82 Long term (current) use of aspirin; Z79.02 Long term (current) use of antithrombotics/antiplatelets; Z79.899 Other long term (current) drug therapy ==

== ENCOUNTER → 2021-11-07 | Outpatient (CLI) | payer MEDICARE | END | disposition home or self-care (01) | LOC: WCC 08:51 | DX: E11.621 Type 2 diabetes mellitus with foot ulcer (principal); L97.425 Non-pressure chronic ulcer of left heel and midfoot with muscle involvement without evidence of necrosis; E11.65 Type 2 diabetes mellitus with hyperglycemia; E11.610 Type 2 diabetes mellitus with diabetic neuropathic arthropathy; E11.51 Type 2 diabetes mellitus with diabetic peripheral angiopathy without gangrene; I10 Essential (primary) hypertension; L84 Corns and callosities; R60.0 Localized edema; F02.80 Dementia in other diseases classified elsewhere, unspecified severity, without behavioral disturbance, psychotic disturbance, mood disturbance, and anxiety; Z79.84 Long term (current) use of oral hypoglycemic drugs; Z79.82 Long term (current) use of aspirin; Z79.899 Other long term (current) drug therapy ==

== ENCOUNTER → 2021-11-14 | Outpatient (CLI) | payer MEDICARE | LOC: WCC 09:28 | DX: E11.621 Type 2 diabetes mellitus with foot ulcer (principal); L97.525 Non-pressure chronic ulcer of other part of left foot with muscle involvement without evidence of necrosis; E11.65 Type 2 diabetes mellitus with hyperglycemia; E11.610 Type 2 diabetes mellitus with diabetic neuropathic arthropathy; I10 Essential (primary) hypertension; E11.51 Type 2 diabetes mellitus with diabetic peripheral angiopathy without gangrene; L84 Corns and callosities; F02.80 Dementia in other diseases classified elsewhere, unspecified severity, without behavioral disturbance, psychotic disturbance, mood disturbance, and anxiety; R60.0 Localized edema; Z79.84 Long term (current) use of oral hypoglycemic drugs; Z79.02 Long term (current) use of antithrombotics/antiplatelets; Z79.82 Long term (current) use of aspirin ==

== ENCOUNTER 2021-11-18 12:34 | Emergency (ER) | payer MEDICARE ==
[~2021-11-18 12:34] MED LIST changes: -LEVOFLOXACIN250 MG PO
[2021-11-18 13:46] LABS: HEMOGLOBIN 13.9 gm/dl (14.0-17.5); RED BLOOD COUNT 4.92 M/UL (4.20-5.50); WHITE BLOOD COUNT 6.3 K/UL (4.5-11.0)
[2021-11-18 14:25] LABS: BUN/CREATININE RATIO 24 (0-10)
[2021-11-18] MEDS ORDERED: LEVOFLOXACIN250 MG PO (15:22)
== END 2021-11-18 15:37 | disposition home or self-care (01) ==
LOC: ER1 12:34
PROVIDERS: Physician Assistant
DX: E11.621 Type 2 diabetes mellitus with foot ulcer (principal); L97.529 Non-pressure chronic ulcer of other part of left foot with unspecified severity
CPT/HCPCS: 73630; 80053; 82550; 82553; 84484; 85025; 85652; 86140; 87040; 99283

== ENCOUNTER → 2021-11-18 | Outpatient (CLI) | payer MEDICARE ==
[~2021-11-18] MED LIST changes: +LEVOFLOXACIN250 MG PO
== END ==
LOC: WCC 07:38
DX: E11.621 Type 2 diabetes mellitus with foot ulcer (principal); L97.425 Non-pressure chronic ulcer of left heel and midfoot with muscle involvement without evidence of necrosis; I10 Essential (primary) hypertension; I73.9 Peripheral vascular disease, unspecified; E11.40 Type 2 diabetes mellitus with diabetic neuropathy, unspecified; E11.36 Type 2 diabetes mellitus with diabetic cataract; H26.9 Unspecified cataract
CPT/HCPCS: G0463